=== PATIENT | male | born 1995 | race Caucasian/White ===

== ENCOUNTER 2017-11-16 09:31 | Emergency (ER) | payer BC, OTHER ==
[2017-11-16] MEDS ORDERED: ACETAMINOPHEN 325 MG TABLET PO ONE (10:20)
[2017-11-16] MEDS ORDERED: DIPH/PERTUSS(ACELL)/TETANUS VAC/PF 0.5 ML SYR (>=10YO) IM ONE (10:42)
--- NOTE | 2017-11-16 11:03 | ER Document Report ---
HPI - HPI Pain Level: 4 Notes: Patient is a 22-year-old male with no significant past medical history who presents to the ED with a dog bite to his left hand prior to arrival. Patient states that his 2 dogs makes. Were fighting as well as photographs of present with abstract on the floor by his daughter. Patient states that he went to break up the fight and got bit once in the hand. Patient states that he has 2 puncture wounds to his left hand. Patient states his last tetanus was within the last 3 years. He still able to move his hand without any difficulties. He has no numbness or tingling associated. Denies any drug allergies. Patient states that his dog's immunizations are up-to-date. They have not been acting ill. No other concerns or complaints at this time. Denies any headache, fever , neck pain, URI, sore throat, chest pain, palpitations, syncope, cough, shortness of breath, wheeze, dyspnea, abdominal pain, nausea/vomiting/diarrhea, urinary retention, dysuria, hematuria, or rash. - ROS Systems Reviewed and Negative: Yes All other systems reviewed and negative Past Medical History - Social History Smoking Status: Unknown if Ever Smoked Family History: Reviewed & Not Pertinent Vertical Provider Document - CONSTITUTIONAL Agree With Documented VS: Yes Notes: PHYSICAL EXAMINATION: GENERAL: Well-appearing, well-nourished and in no acute distress. LUNGS: Breath sounds clear to auscultation bilaterally and equal. No wheezes rales or rhonchi. HEART: Regular rate and rhythm without murmurs, rubs, gallops. Musculoskeletal: Left hand: + 0.5cm puncture posterior prox 1st digit and another 0.75-1cm puncture wound to the anterior lateral palm. FROM to passive/ active. Strength 5+/5. N/V intact distal. No obvious foreign body. No bony tenderness. Extremities: No cyanosis, clubbing, or edema b/l. Peripheral pulses 2+. Capillary refill less than 3 seconds. NEUROLOGICAL: Normal speech, normal gait. Normal sensory, motor exams PSYCH: Normal mood, normal affect. SKIN: see above. Warm, Dry, normal turgor, no rashes or lesions noted. - INFECTION CONTROL TRAVEL OUTSIDE OF THE [place] IN LAST 30 DAYS: No Course - Re-evaluation Re-evalutation: 11/16/17 11:40 Patient is an afebrile, well-hydrated, 22-year-old male who presents to the ED with a dog bite, 2 punctures, to the left hand with a puncture to the bone of the distal shaft 1st digit--open fracture. Vitals are acceptable. PE is otherwise unremarkable for any neurovascular compromise, obvious tendon/ ligament rupture, retained foreign body. See XR result. Wound was thoroughly irrigated and cleansed as well as soaked. Wound dressing was placed and wound instructions reviewed. Reviewed with Dr. Yun: 1g Ancef given IV today. I will be placing him on Augmentin to take as directed. Will consult with Dr. Mccracken as well per Dr. Yun. Conservative measures otherwise for symptoms. Recheck with your PCM in 3-5 days. Schedule a consult with orthopedics for Tuesday per Dr. Mccracken. Return to the ED with any worsening/concerning symptoms otherwise as reviewed discharge. Patient is in agreement. Tetanus is up-to- date. - Vital Signs Vital signs: Temp Pulse Resp BP Pulse Ox 98.5 F 87 18 135/97 H 98 11/16/17 09:38 11/16/17 09:38 11/16/17 09:38 11/16/17 09:38 11/16/17 09:38 Discharge - Discharge Clinical Impression: Open fracture Dog bite Qualifiers: Encounter type: initial encounter Qualified Code(s): W54.0XXA - Bitten by dog, initial encounter Condition: Stable Disposition: HOME, SELF-CARE Instructions: Animal Bites ([facility]) Additional Instructions: Keep the skin clean Wash with soap and water Daily dressing change Tylenol/ibuprofen if needed Triple antibiotic ointment daily Take medication as directed Monitor for any worsening symptoms Recheck with your PCM in 3-5 days Schedule an appointment on Tuesday with Dr. Mccracken at Orthopedics Return to the ED with any worsening symptoms and/or development of fever, headache, chest pain, palpitations, syncope, shortness of breath, trouble breathing, abdominal pain, n/v/d, abscess, purulent discharge, red streaks, worsening swelling, or other worsening symptoms that are concerning to you. Prescriptions: Amox Tr/Potassium Clavulanate [Augmentin 875-125 Tablet] 1 tab PO BID 10 Days # 20 tablet Forms: Elevated Blood Pressure Referrals: LORI MCCRACKEN MD [ACTIVE STAFF] - 11/18/17
--- NOTE | 2017-11-16 11:17 | RADIOLOGY REPORT (SQ) ---
EXAM DESCRIPTION: HAND LEFT 3 VIEWS COMPLETED DATE/TIME: 11/16/2017 11:01 am REASON FOR STUDY: dog bite left hand COMPARISON: None. EXAM PARAMETERS: NUMBER OF VIEWS: Three views. TECHNIQUE: AP, lateral and oblique radiographic images acquired of the left hand. LIMITATIONS: None. FINDINGS: Overall normal bone density. Patient has a dog bite over the thenar eminence, with multiple soft tissue air bubbles. Along the distal half of the 1st metacarpal, there is a puncture wound through the bony cortex, marke d with an arrow. Remainder of the bones of the left hand are otherwise unremarkable. IMPRESSION: Bony puncture wound along the distal half of the 1st metacarpal. Seen are eminence soft tissue gas from dog bite puncture wounds TECHNICAL DOCUMENTATION: JOB ID: [id number]- All Rights Reserved Reading location - IP/workstation name: [email or web address]
[2017-11-16] MEDS ORDERED: CEFAZOLIN 1 GM/D5W RTU 1 GM/50 ML RTUPB IV ONE (11:24)
[2017-11-16 12:49] VITALS: BP 131/84
== END 2017-11-16 12:49 | disposition home or self-care (01) ==
LOC: ER 09:31
DX: S62.522B Displaced fracture of distal phalanx of left thumb, initial encounter for open fracture (principal); W54.0XXA Bitten by dog, initial encounter; Y92.009 Unspecified place in unspecified non-institutional (private) residence as the place of occurrence of the external cause
CPT/HCPCS: 99283; 96365; 73130; J0690